=== PATIENT | male | born 1945 | race Caucasian/White ===

== ENCOUNTER 2016-07-21 13:30 | Day surgery (SDC) | payer MEDICARE, OTHER ==
[~2016-07-21] VITALS: Ht 177.8 cm; Wt 100.0 kg
[~2016-07-21 13:30] MED LIST: DETROL LA4 M1 PO; LOSA50TA3 PO; METR45GE TOP; Sodium Chloride LOK Flush 10 mL Syringe IV PRN; fentaNYL-PF 50 mCg/mL 2 mL Inj IVPUSH PRN
[2016-07-21 14:30] VITALS: BP 158/81; PULSE 77; RESP 16; O2SAT 95
[2016-07-21] MEDS: 0.9% Sodium Chloride 1,000 ML IV PRN ×2 (15:36→15:59)
[2016-07-21 16:11] VITALS: BP 115/67; PULSE 69; RESP 14; O2SAT 97
[2016-07-21 16:20] VITALS: BP 114/66; PULSE 64; RESP 16; O2SAT 95
[2016-07-21 16:30] VITALS: BP 120/66; PULSE 63; RESP 16; O2SAT 97
--- NOTE | 2016-07-21 16:48 | ENDO ---
[address] [address] ENDOSCOPY PROCEDURE PATIENT: JOELLEN REBOLLAR : 1945 MR#: [id number] ADMIT: 07/21/2016 JOB ID: [id number] DATE: 07/21/2016 PRIMARY PROVIDER: Jared Brown MD PROCEDURE: Colonoscopy. INDICATIONS: A 70-year-old male who reports for colon cancer screening. EQUIPMENT: PCF H 190 DL. SEDATION: 1. 5 mg Versed. 2. 100 mcg fentanyl. COMPLICATIONS: None identified. BOWEL PREPARATION: Fair at best. PROCEDURAL INFORMATION: After the risks and benefits were explained, written and verbal informed consent was obtained. The patient was brought into the endoscopy suite and placed into the left lateral decubitus position. Sedation was achieved using the above-stated medications with the addition of oxygen via nasal cannula. A digital rectal examination was accomplished. No significant pathology apart from some mild internal and external nonbleeding, nonthrombosed hemorrhoids. The scope was introduced into the rectum and advanced under direct visualization to the level of the cecum, as identified by the appendiceal orifice and ileocecal valve. The scope was slowly withdrawn to carefully examine the mucosa for any defects or lesions. Multiple direct views were made through the dentate line for exclusion of pathology. The colon was decompressed. The scope removed the patient who tolerated the procedure well. FINDINGS: Copious amounts of irrigation were required for suboptimal prep conditions. There were several areas with dense fibrous debris and fluid. Small polyps could have been overlooked in a few areas. I did not see any mass lesions. No significant polyps throughout. No signs of any colitis. ENDOSCOPIC DIAGNOSIS: Visually unremarkable colonoscopy to cecum. RECOMMENDATIONS: In light of the slightly suboptimal bowel prep conditions, consider repeat colon cancer screening in the next five years rather than waiting a full 10.
== END 2016-07-21 23:59 | disposition home or self-care (01) ==
LOC: END 13:30
PROVIDERS: ATTEND Internal Medicine Gastroenterology
DX: Z12.11 Encounter for screening for malignant neoplasm of colon (principal); I10 Essential (primary) hypertension
CPT/HCPCS: 99153; G0121; G0500; J2250; J3010; J7030